=== PATIENT | male | born 1945 | race Caucasian/White ===

== ENCOUNTER → 2017-11-25 | Day surgery (SDC) | payer OTHER, MEDICARE ==
[2017-11-19 15:41] VITALS: Ht 171.5 cm; Wt 82.7 kg
[~2017-11-25] VITALS: Ht 171.5 cm; Wt 82.7 kg
[~2017-11-25] MED LIST: ASPI81TA28 PO; ATOR-24 PO; CALC0.2510 PO; CALC667C4 PO; CARV25TA2 PO; CHOL1TAB76 PO; CLON0.2T PO; ENDOSCOPIC MARKER 5 ML SYR ONE; FURO40TA3 PO; HMLIS SQ; INSDGI SQ; LIDOCAINE HCL 2% 2 ML VIAL (20MG/ML) ONE; LOSA50TA6 PO; NTRGSL/4 SL; ONDANSETRON INJ 2 MG/ML 2 ML VIAL IV PRN; PHENYLEPHRINE 100MCG/ML 5ML SYR ONE; PROPOFOL IV EMULSION 10 MG/ML 20 ML VIAL ONE; TRAM-10 PO
--- NOTE | 2017-11-25 09:30 | Endo History and Physical ---
History & Physical Date of Service: November 25, 2017. Chief Complaint: black tarry stools Referring Physician: Dr. Gentry santizo History of Present Illness Patient referred for history of dark tarry stool. This occurred about 1 month ago and is subsequently resolved. The patient and his do note that he has some abdominal distention which appears to be worsening. Past Surgical History Hx Cardiac Surgery: Yes (CARDIAC CATH-5 BLOCKAGES=QUINTUPLE BYPASS 2005, 3 STENTS) Hx Internal Defibrillator: No Hx Pacemaker: No Hx Abdominal Surgery: Yes (1972 APP) Hx of Implantable Prosthesis: No Hx Cancer Surgery: No Hx Thoracic Surgery: No Hx Orthopedic: No Hx Urinary Tract Surgery: No Family History Colon CA Social History Smoking Status: Former Smoker Hx Substance Use: No Hx Alcohol Use: No Allergies Coded Allergies: No Known Allergies (Unverified , 11/19/17) Current Medications Reported Home Medications Medications Dose Route/Sig Max Daily Dose Days Date Category Dose Instructions Cozaar (Losartan Potassium) 50 Mg Tab 1 Tab PO DAILY 30 11/19/17 Reported Nitrostat (Nitroglycerin) 0.4 Mg Tab 1 Tab SL UD 11/19/17 Reported Ultram (Tramadol HCl) 50 Mg Tab 1 Tab PO QID PRN 30 11/19/17 Reported Phoslo 667 Mg (Calcium Acetate) 667 Mg Cap 1 Cap PO DAILY 30 11/19/17 Reported Lasix (Furosemide) 40 Mg Tab 1 Tab PO DAILY 30 11/19/17 Reported D 2000 (Cholecalciferol) 2,000 Unit Tab 1 Tab PO DAILY 11/19/17 Reported Humalog Kwikpen (Insulin Human Lispro) 100 Units/Ml Inj SQ ACHS 06/14/16 Reported SLIDING SCALE Lantus (Insulin Glargine) 100 Unit/Ml Inj 28 Unit SQ HS 06/14/16 Reported Aspirin Ec (Aspirin) 81 Mg Tab 81 Mg PO DAILY 06/14/16 Reported Catapres (Clonidine Hcl) 0.2 Mg Tab 0.5 Tab PO TID 06/14/16 Reported Coreg (Carvedilol) 25 Mg Tab 25 Mg PO BID 06/14/16 Reported Rocaltrol Cap (Calcitriol) 0.25 Mcg Cap 0.25 Mcg PO DAILY 06/14/16 Reported Lipitor (Atorvastatin Calcium) 40 Mg Tab 40 Mg PO DAILY 06/14/16 Reported Vital Signs Weight (Kilograms): 82.73 Height (Feet): 5 Height (Inches): 7.5 Date Time Temp Pulse Resp B/P (MAP) Pulse Ox O2 Delivery O2 Flow Rate FiO2 11/25/17 09:14 36.8 72 20 119/53 (75) 97 Room Air Physical Exam General Appearance: no apparent distress Respiratory/Chest: Auscultation: deminished air movement Cardiovascular: Heart Auscultation: RRR Abdomen: Inspection & Palpation: soft, pertinent finding (Mild distention) Assessment and Plan Patient referred for upper endoscopy and colonoscopy to evaluate a history of anemia and dark sticky stool. The symptoms have subsequently resolved. I wonder if this may be related to peptic ulcer disease. We will proceed with an upper endoscopy and colonoscopy today. We have discussed the risks to include bleeding, infection, perforation, pain and missed colonic polyps. I would suggest that the patient follow with his regular provider due to the abdominal distention.
[2017-11-25 10:14] LABS: ISTAT IONIZED CALCIUM 1.17 mmol/l (1.12-1.32); ISTAT POTASSIUM 3.6 mEq/L (3.3-5.0)
--- NOTE | 2017-11-25 10:40 | Discharge Instructions ---
Endoscopy Patient Instructions Date / Procedure(s) Performed November 25, 2017. Colonoscopy, EGD Allergy Information Coded Allergies: No Known Allergies (Unverified , 11/19/17) Discharge Date / Findings November 25, 2017. Internal hemorrhoids Diverticulosis of the sigmoid colon One sigmoid colon polyp 1 large duodenal ulcer Mild gastritis Medication Instructions Stopped Medication(s): last ASA yesterday Reported Home Medications Medications Dose Route/Sig Max Daily Dose Days Date Category Dose Instructions Cozaar (Losartan Potassium) 50 Mg Tab 1 Tab PO DAILY 30 11/19/17 Reported Nitrostat (Nitroglycerin) 0.4 Mg Tab 1 Tab SL UD 11/19/17 Reported Ultram (Tramadol HCl) 50 Mg Tab 1 Tab PO QID PRN 30 11/19/17 Reported Phoslo 667 Mg (Calcium Acetate) 667 Mg Cap 1 Cap PO DAILY 30 11/19/17 Reported Lasix (Furosemide) 40 Mg Tab 1 Tab PO DAILY 30 11/19/17 Reported D 2000 (Cholecalciferol) 2,000 Unit Tab 1 Tab PO DAILY 11/19/17 Reported Humalog Kwikpen (Insulin Human Lispro) 100 Units/Ml Inj SQ ACHS 06/14/16 Reported SLIDING SCALE Lantus (Insulin Glargine) 100 Unit/Ml Inj 28 Unit SQ HS 06/14/16 Reported Aspirin Ec (Aspirin) 81 Mg Tab 81 Mg PO DAILY 06/14/16 Reported Catapres (Clonidine Hcl) 0.2 Mg Tab 0.5 Tab PO TID 06/14/16 Reported Coreg (Carvedilol) 25 Mg Tab 25 Mg PO BID 06/14/16 Reported Rocaltrol Cap (Calcitriol) 0.25 Mcg Cap 0.25 Mcg PO DAILY 06/14/16 Reported Lipitor (Atorvastatin Calcium) 40 Mg Tab 40 Mg PO DAILY 06/14/16 Reported Provider Instructions Activity Restrictions - No exercising or heavy lifting for 24 hours. - Do not drink alcohol the day of the procedure. - Do not drive a car or operate machinery until the day after the procedure. - Do not make any important decisions or sign important papers in 24 hours after the procedure. Following Day: - Return to full activity which may include returning to work/school. Diet Start your diet with liquids and light foods (jello, soup, juice, toast). Then eat your usual diet if not nauseated. Treatment For Common After Affects For mild abdominal pain, bloating, or excessive gas: - Rest - Eat lightly - Lie on right side Follow-Up Information Follow-up with Dr. Gentry santizo as scheduled Protonix 40 mg per day Carafate 1 gm twice daily for 6 week Repeat upper endoscopy in 3 months Anesthesia Information What You Should Know You have had a procedure that required some medicine to reduce anxiety and discomfort. This treatment is called moderate sedation. After receiving the treatment, you may be sleepy, but you will be able to breathe on your own. The effects of the treatment may last for several hours. Follow these instructions along with Activity/Diet recommendations noted above: * Do NOT do anything where dizziness or clumsiness would be dangerous. * Rest quietly at home today, then you can be up and about tomorrow. * Have a responsible person stay with you the rest of today. * You may have had an I.V. today. If so, you may take the dressing off later today. Recommendations Call your doctor if: * Trouble breathing * Continuous vomiting for more than 24 hours * Temperature above 101 degrees * Severe abdominal pain or bloating * Pain not relieved by pain medicine ordered * There is increased drainage or redness from any incision * A large amount of rectal bleeding greater than 2-3 tablespoons. (If you had a polyp/s removed or have hemorrhoids, a small amount of blood - from the rectum is to be expected.) * You have any unanswered questions or concerns. IN THE EVENT OF A SERIOUS EMERGENCY, GO TO THE NEAREST EMERGENCY ROOM Your discharge instructions were prepared by provider Vidal Avalos. Patient Instructions Signature Page Tres Hernández Patient (or Guardian) Signature/Date: I have read and understand the instructions given to me by my caregivers. Caregiver/RN/Doctor Signature/Date: The above-named patient and/or guardian has received patient instructions on this date. + Original Patient Signature Page (only) stays with chart. Please make copy for patient.
--- NOTE | 2017-11-25 10:44 | GI REPORT ---
Patient Name: Tres Hernández Procedure Date: 11/25/2017 9:37 AM Date of : 1945 Admit Type: Outpatient Age: 72 Gender: Male Attending MD: Vidal Avalos DO Procedure: Colonoscopy Providers: Vidal Avalos DO Referring MD: Gentry Marquis Piledis Indications: Screening for colorectal malignant neoplasm Medicines: Monitored Anesthesia Care Complications: No immediate complications. Estimated blood loss: Minimal. Estimated Blood Loss: Estimated blood loss was minimal. Procedure: Pre-Anesthesia Assessment: - Prior to the procedure, a History and Physical was performed, and patient medications, allergies and sensitivities were reviewed. The patient's tolerance of previous anesthesia was reviewed. - The risks and benefits of the procedure and the sedation options and risks were discussed with the patient. All questions were answered and informed consent was obtained. - Patient identification and proposed procedure were verified prior to the procedure by the physician, the nurse and the fibreglass laminator. The procedure was verified in the procedure room. - Pre-procedure physical examination revealed no contraindications to sedation. - ASA Grade Assessment: III - A patient with severe systemic disease. - After reviewing the risks and benefits, the patient was deemed in satisfactory condition to undergo the procedure. - The anesthesia plan was to use monitored anesthesia care (MAC). - Immediately prior to administration of medications, the patient was re-assessed for adequacy to receive sedatives. - The heart rate, respiratory rate, oxygen saturations, blood pressure, adequacy of pulmonary ventilation, and response to care were monitored throughout the procedure. - The physical status of the patient was re-assessed after the procedure. After I obtained informed consent, the scope was passed under direct vision. Throughout the procedure, the patient's blood pressure, pulse, and oxygen saturations were monitored continuously. The scope was introduced through the anus and advanced to the cecum, identified by appendiceal orifice and ileocecal valve. The colonoscopy was performed without difficulty. The patient tolerated the procedure well. The quality of the bowel preparation was good. Findings: The perianal and digital rectal examinations were normal. Pertinent negatives include normal sphincter tone. Multiple small-mouthed diverticula were found in the sigmoid colon and descending colon. A 18 mm polyp was found in the sigmoid colon. The polyp was sessile. The polyp was removed with a piecemeal technique using a hot snare. Resection and retrieval were complete. Area was tattooed with an injection of 1 mL of Spot (carbon black). Estimated blood loss was minimal. Internal hemorrhoids were found during retroflexion. The hemorrhoids were mild. The exam was otherwise without abnormality. Impression: - Mild diverticulosis in the sigmoid colon and in the descending colon. - One 18 mm polyp in the sigmoid colon, removed piecemeal using a hot snare. Resected and retrieved. Tattooed. - Internal hemorrhoids. - The examination was otherwise normal. Recommendation: - Discharge patient to home (ambulatory). - Advance diet as tolerated. - Repeat colonoscopy in 1 year for surveillance after piecemeal polypectomy. Vidal Avalos D.O. Vidal Avalos, 11/25/2017 10:44:09 AM This report has been signed electronically. Note Initiated On: 11/25/2017 9:37 AM Number of Addenda: 0 I attest to the content of the Intraoperative Record and orders documented therein, exceptions below {[id number]}
--- NOTE | 2017-11-25 10:47 | GI REPORT ---
Patient Name: Tres Hernández Procedure Date: 11/25/2017 9:37 AM Date of : 1945 Admit Type: Outpatient Age: 72 Gender: Male Attending MD: Vidal Avalos DO Procedure: Upper GI endoscopy Providers: Vidal Avalos DO Referring MD: Gentry Marquis Indications: Melena Medicines: Monitored Anesthesia Care Complications: No immediate complications. Estimated blood loss: Minimal. Estimated Blood Loss: Estimated blood loss was minimal. Procedure: Pre-Anesthesia Assessment: - Prior to the procedure, a History and Physical was performed, and patient medications, allergies and sensitivities were reviewed. The patient's tolerance of previous anesthesia was reviewed. - The risks and benefits of the procedure and the sedation options and risks were discussed with the patient. All questions were answered and informed consent was obtained. - Patient identification and proposed procedure were verified prior to the procedure by the physician, the nurse and the program director/morning show host. The procedure was verified in the procedure room. - Pre-procedure physical examination revealed no contraindications to sedation. - ASA Grade Assessment: IV - A patient with severe systemic disease that is a constant threat to life. - After reviewing the risks and benefits, the patient was deemed in satisfactory condition to undergo the procedure. - The anesthesia plan was to use monitored anesthesia care (MAC). - Immediately prior to administration of medications, the patient was re-assessed for adequacy to receive sedatives. - The heart rate, respiratory rate, oxygen saturations, blood pressure, adequacy of pulmonary ventilation, and response to care were monitored throughout the procedure. - The physical status of the patient was re-assessed after the procedure. After obtaining informed consent, the endoscope was passed under direct vision. Throughout the procedure, the patient's blood pressure, pulse, and oxygen saturations were monitored continuously. The scope was introduced through the mouth, and advanced to the third part of duodenum. The upper GI endoscopy was accomplished without difficulty. The patient tolerated the procedure well. Findings: The examined esophagus was normal. Diffuse mild inflammation characterized by erythema and granularity was found in the entire examined stomach. Biopsies were taken with a cold forceps for histology. Estimated blood loss was minimal. One partially obstructing non-bleeding cratered duodenal ulcer with no stigmata of bleeding was found in the duodenal bulb. The lesion was 20 mm in largest dimension. Biopsies were taken with a cold forceps for histology. Estimated blood loss was minimal. The second portion of the duodenum and third portion of the duodenum were normal. Impression: - Normal esophagus. - Gastritis. Biopsied. - One partially obstructing non-bleeding duodenal ulcer with no stigmata of bleeding. NSAID induced etiology. Biopsied. - Normal second portion of the duodenum and third portion of the duodenum. Recommendation: - Perform a colonoscopy today. - Await pathology results. - Use Protonix (pantoprazole) 40 mg PO daily. - Use sucralfate tablets 1 gram PO BID for 6 weeks. - No aspirin, ibuprofen, naproxen, or other non-steroidal anti-inflammatory drugs for 6 weeks. Vidal Avalos D.O. Vidal Avalos, 11/25/2017 10:47:27 AM This report has been signed electronically. Note Initiated On: 11/25/2017 9:37 AM Number of Addenda: 0 I attest to the content of the Intraoperative Record and orders documented therein, exceptions below {[id number]}
[2017-11-25 11:17] VITALS: BP 119/58; PULSE 70; O2SAT 99
--- NOTE | 2017-11-25 11:20 | Anesthesiology Progress Note ---
Anesthesia Post Op Note Date & Time November 25, 2017 at 11:20 Vital Signs Pain Intensity: 0 Vital Signs Past 12 Hours Date Time Temp Pulse Resp B/P (MAP) Pulse Ox O2 Delivery O2 Flow Rate FiO2 11/25/17 11:17 70 18 119/58 (78) 99 Room Air 11/25/17 11:02 68 16 110/60 (77) 99 Room Air 11/25/17 10:47 67 16 99/55 (70) 98 Room Air 11/25/17 09:14 36.8 72 20 119/53 (75) 97 Room Air Notes Mental Status: alert / awake / arousable, participated in evaluation Pt Amnestic to Procedure: Yes Nausea / Vomiting: adequately controlled Pain: adequately controlled Airway Patency, RR, SpO2: stable & adequate BP & HR: stable & adequate Hydration State: stable & adequate Anesthetic Complications: no major complications apparent
== END | disposition home or self-care (01) ==
LOC: C.GI 08:44
PROVIDERS: ATTEND Internal Medicine Gastroenterology
DX: K92.1 Melena (principal); K57.30 Diverticulosis of large intestine without perforation or abscess without bleeding; K29.80 Duodenitis without bleeding; K63.5 Polyp of colon; K64.8 Other hemorrhoids; K26.9 Duodenal ulcer, unspecified as acute or chronic, without hemorrhage or perforation; K29.70 Gastritis, unspecified, without bleeding; E11.22 Type 2 diabetes mellitus with diabetic chronic kidney disease; N18.4 Chronic kidney disease, stage 4 (severe); E78.5 Hyperlipidemia, unspecified; Z99.2 Dependence on renal dialysis; I12.9 Hypertensive chronic kidney disease with stage 1 through stage 4 chronic kidney disease, or unspecified chronic kidney disease; Z79.82 Long term (current) use of aspirin; Z79.899 Other long term (current) drug therapy; Z79.4 Long term (current) use of insulin; F17.220 Nicotine dependence, chewing tobacco, uncomplicated; Z80.0 Family history of malignant neoplasm of digestive organs

== ENCOUNTER 2019-01-02 05:25 | Inpatient (IN) ==
[2019-01-02] MEDS ORDERED: LOSARTAN POTASSIUM 50 MG TAB PO STA ×2 (06:00→06:48)
[2019-01-02 06:02] LABS: Basophils # (auto) 0.02 K/uL (0-0.2); Basophils % (auto) 0.2 %; Eosinophils # (auto) 0.08 K/uL (0-0.5); Eosinophils % (auto) 0.8 %; Hematocrit (blood only) 34.9 % (42-52); Hemoglobin 11.9 g/dL (14.0-18.0); Immature Granulocytes # (auto) 0.02 K/uL (0.00-0.02); Immature Granulocytes % (auto) 0.2 %; Lymphocytes # (auto) 0.61 K/uL (1.2-3.4); Lymphocytes % (auto) 6.3 %; Mean Corpuscular Hgb Conc 34.1 g/dL (32-36); Mean Corpuscular Volume 95.9 fL (80-100); Mean Platelet Volume 10.1 fL (7.4-10.4); Monocytes # (auto) 0.67 K/uL (0.11-0.59); Monocytes % (auto) 6.9 %; Neutrophils # (auto) 8.28 K/uL (1.4-6.5); Neutrophils % (auto) 85.6 %; Platelet Count 142 K/uL (130-400); RDW Coefficient of Variation 12.6 % (11.5-14.5); RDW Standard Deviation 44.1 fL (36.4-46.3); Red Blood Count 3.64 M/uL (4.7-6.1); White Blood Count 9.68 K/uL (4.8-10.8)
[2019-01-02 06:25] LABS: Prothrombin Time 10.6 Seconds (9.0-12.0)
[2019-01-02 06:34] LABS: Albumin Level 3.4 gm/dl (3.4-5.0); BUN Creatinine Ratio 4.3 (10-20); Bilirubin,Total 0.5 mg/dl (0.2-1); Calcium 9.6 mg/dl (8.5-10.1); Creatinine Clr Calc Pharmacy 9.4 ml/min; Est GFR (African American) 7.6; Est GFR (Non-African American) 6.5; Globulin 3.3 gm/dl (2.5-4.0); Magnesium 1.9 mg/dl (1.8-2.4); Phosphorus 4.6 mg/dl (2.5-4.9); Total Protein 6.7 gm/dl (6.4-8.2); Troponin I 0.095 ng/ml (0-0.045)
[2019-01-02] MEDS ORDERED: ALBUT/IPRATROP 3MG/0.5MG NEB 3 ML VIAL NEB STA (07:03)
[2019-01-02 07:08] LABS: Appearance Urine Clear (Clear); Bacteria Urine Automated Negative (Negative); Bilirubin Urine Negative (Negative); Blood Urine 3+ (Negative); Glucose Urine UA 2+ (Negative); Ketones Urine Negative (Negative); Leukocyte Esterase Urine Trace (Negative); Nitrite Urine Negative (Negative); RBC Urine Automated >30 /hpf (0-4); Specific Gravity Urine 1.011 (1.000-1.030); Urobilinogen Urine Negative (Negative)
[2019-01-02 07:16] LABS: Color Urine Dark Yellow; Protein Urine 2+ (Negative)
--- NOTE | 2019-01-02 07:21 | XRay Report ---
XR chest 1V portable CLINICAL HISTORY: 73 years-old Male presenting with sob. TECHNIQUE: Portable upright AP view of the chest was obtained. COMPARISON: 06/14/2016. FINDINGS: Median sternotomy wires and bypass graft rings noted. Vascular stent projects in the region of the le ft axilla. Atherosclerosis of the aortic arch. Cardiac silhouette top normal in size. Persistent elev ation of the left hemidiaphragm with few bandlike opacities at the left lung base. Diffusely prominen t lung markings most evident in the right lung. This may in part relate to interlobular septal thicke wm. No other focal opacity. No large effusion or pneumothorax. Degenerative changes of the thoracic spine. IMPRESSION: 1. Persistent left basilar atelectasis or scarring in the setting of left diaphragm elevation. 2. Diffusely coarsened lung markings may suggest congestive change or underlying chronic lung diseas e. No focal infiltrate to suggest edema or pneumonia. Electronically signed by: Devan Hidalgo M.D. 01/02/2019 7:19 AM
--- NOTE | 2019-01-02 08:11 | Emergency Department Note ---
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 this ECG as follows: Indication: SOB/dyspnea Rate (beats per minute): 99 Rhythm: sinus rhythm Findings: + other (normal intervals), + T-wave inversion (in aVL) and + left axis deviation; no PAC, no PVC, no ST depression, no ST elevation, no acute ischemic change and no ectopy Blood Pressure Blood Pressure Findings: Elevated blood pressure Blood Pressure Disposition: further management by hospitalist MDM Narrative Patient here well-appearing at rest, although describes worsening shortness of breath particularly with exertion over the last few days. Patient does have significant cardiac and renal history. He is due for dialysis today. Patient's initial labs revealed an elevated creatinine consistent with his chronic kidney disease as well as an elevated troponin which was originally thought to be secondary to his renal dysfunction. 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 Upon review of EMR, despite his chronic kidney disease patient has never had an elevated troponin level previously. Patient was recently treated for possible UTI as he presented to an outside ED with hematuria and was started on ciprofloxacin. Patient here had increased work of breathing and reported increased dyspnea with exertion, however oxygen saturations only dropped to 92%. Given unclear etiology, concern for his complex medical history, and continued reported symptoms, case was discussed with hospitalist for additional evaluation and management. Patient with a low risk Wells score, I have a low suspicion for PE given that symptoms are only with exertion and more likely be related to cardiac etiology instead of PE. Patient and family were made aware of all results and were in agree concerned about his progression of symptoms and unclear etiology. Impression & Plan Dyspnea, Elevated troponin, CKD (chronic kidney disease) Discharge Plan Visit Data *Final* Discharge Date/Time: 01/02/19 10:26 Chief Complaint: Shortness of Breath/Dyspnea Stated Complaint: chest tightness ED Provider: Abby Mabry Discharge Problem: Dyspnea, Elevated troponin, CKD (chronic kidney disease) Patient Disposition: Admitted As Inpatient Discharge Instructions Interventions: ED Discharge Assessment Last Done: 01/02/19 10:26 Discharge Problem: Dyspnea Qualifiers: Dyspnea type: dyspnea on exertion Qualified Code(s): R06.09 - Other forms of dyspnea CKD (chronic kidney disease) Qualifiers: Chronic kidney disease stage: on chronic dialysis Qualified Code(s): N18.6 - End stage renal disease The scribe's documentation has been prepared under my direction and personally reviewed by me in its entirety. I confirm that the note above accurately reflects all work, treatment, procedures, and medical decision making performed by me.
[2019-01-02] MEDS ORDERED: ASPIRIN 81 MG CHEW PO STA (09:33)
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
[2019-01-02] MEDS ORDERED: DEXTROSE 50% 50 ML SYRINGE IV PRN (10:58)
[2019-01-02] MEDS ORDERED: GLUCAGON FOR INJ 1 MG VIAL SQ PRN (10:58)
[2019-01-02] MEDS ORDERED: GLUCOSE 40% GEL 15 GM TUBE PO PRN (10:58)
[2019-01-02] MEDS ORDERED: CARBOHYDRATES FOR HYPOGLYCEMIA PO PRN (10:58)
[2019-01-02] MEDS ORDERED: ACETAMINOPHEN 325 MG TAB PO PRN (10:58)
[2019-01-02] MEDS ORDERED: GLUCOSE 10 TABS/TUBE PO PRN (10:58)
[2019-01-02] MEDS ORDERED: NITROGLYCERIN SL 0.4 MG/TAB TAB SL PRN (10:58)
[2019-01-02] MEDS: ATORVASTATIN 40 MG TAB PO SCH (12:32)
[2019-01-02] MEDS: PANTOprazole 40 MG TAB PO SCH (12:32)
[2019-01-02] MEDS: NEPHROCAPS PO SCH (12:34)
[2019-01-02] MEDS: CALCIUM ACETATE 667 MG CAP PO SCH ×3 (12:34→20:43)
[2019-01-02] MEDS: SEVELAMER HCL 800 MG TABLET PO SCH ×3 (12:34→20:43)
[2019-01-02] MEDS: INSULIN ASPART 100 UNITS/ML 3 ML PEN SC SCH ×3 (12:35→20:43)
[2019-01-02] MEDS: NITROGLYCERIN 2% OINTMENT 30GM TUBE EXT SCH ×3 (12:39→23:42)
[2019-01-02] MEDS ORDERED: HEPARIN SOD (PORCINE) 1000 UNIT/ML 10 ML VIAL IV ONE (12:43)
[2019-01-02] MEDS ORDERED: SODIUM CHLORIDE 0.9% 1000ML 1,000 ML IV PRN (12:43)
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
[2019-01-02 13:25] LABS: Hepatitis B Surface Antibody Immune
[2019-01-02] MEDS: CIPROFLOXACIN 500 MG TAB PO SCH (13:33)
[2019-01-02] MEDS: cloNIDine HCl 0.1 MG TAB PO SCH ×2 (13:33→20:42)
[2019-01-02 13:36] LABS: Hepatitis B Surface Antigen Neg (Neg)
--- NOTE | 2019-01-02 14:36 | Cardiology Progress Note ---
Date of Service January 02, 2019 Subjective Patient reassessed. He was in the inpatient dialysis unit receiving treatment. He was comfortable, and states he is asymptomatic from a chest pain standpoint. Blood pressure is improved. Echocardiogram revealed moderate concentric left ventricular hypertrophy, with normal left ventricular wall motion and normal LVEF. Moderate calcific aortic valve stenosis was present. The patient did not recall the past diagnosis of aortic stenosis, and so therefore I counseled him regarding the natural history of aortic stenosis. No operative intervention necessary at present since this is just moderate aortic stenosis, but will require echocardiographic surveillance in the future. Continue present therapy. Okay to advance diet from my perspective. Results & Data Vital Signs (Past 12 Hours) Vital Signs Temp Pulse Pulse Pulse Resp Resp BP 01/02/19 13:33 61 01/02/19 11:09 65 01/02/19 11:02 36.6 C 67 20 01/02/19 10:26 37.2 C 68 20 168/82 H 01/02/19 10:07 68 20 01/02/19 09:31 68 21 168/75 H 01/02/19 09:30 70 27 H 01/02/19 09:15 72 25 H 01/02/19 09:06 73 22 168/88 H 01/02/19 09:00 70 28 H 01/02/19 08:45 74 30 H 01/02/19 08:30 74 20 01/02/19 08:15 75 21 01/02/19 08:07 78 18 01/02/19 08:01 87 19 01/02/19 07:45 80 78 16 20 01/02/19 07:31 78 77 20 01/02/19 07:30 79 18 177/86 H 01/02/19 07:29 78 24 01/02/19 07:15 79 20 01/02/19 07:01 80 30 H 01/02/19 07:00 79 78 24 184/86 H 01/02/19 06:53 83 19 170/79 H 01/02/19 06:45 82 18 01/02/19 06:32 85 24 01/02/19 06:31 86 24 170/79 H 01/02/19 06:30 86 23 01/02/19 06:15 88 19 01/02/19 06:01 91 H 90 25 H 183/85 H 01/02/19 06:00 91 H 23 01/02/19 05:48 96 H 25 H 01/02/19 05:32 97 H 25 H 01/02/19 05:31 101 H 24 214/95 H 01/02/19 05:29 98 H 24 215/97 H 01/02/19 05:25 37.2 C 96 H 24 214/95 H BP Pulse Ox Pulse Ox 01/02/19 13:33 168/79 H 01/02/19 11:09 01/02/19 11:02 182/78 H 96 01/02/19 10:26 98 01/02/19 10:07 168/82 H 98 01/02/19 09:31 98 01/02/19 09:30 98 01/02/19 09:15 98 01/02/19 09:06 97 01/02/19 09:00 97 01/02/19 08:45 97 01/02/19 08:30 97 01/02/19 08:15 98 01/02/19 08:07 177/86 H 97 01/02/19 08:01 97 01/02/19 07:45 97 97 01/02/19 07:31 100 01/02/19 07:30 99 01/02/19 07:29 177/86 H 98 01/02/19 07:15 98 01/02/19 07:01 99 01/02/19 07:00 184/86 H 98 01/02/19 06:53 98 01/02/19 06:45 98 01/02/19 06:32 170/79 H 98 01/02/19 06:31 99 01/02/19 06:30 98 01/02/19 06:15 96 01/02/19 06:01 183/85 H 98 01/02/19 06:00 97 01/02/19 05:48 95 01/02/19 05:32 96 01/02/19 05:31 96 01/02/19 05:29 95 01/02/19 05:25 96
[2019-01-02] MEDS ORDERED: CIPROFLOXACIN 500 MG TAB PO SCH (17:00)
[2019-01-02] MEDS: HEPARIN SOD (PORCINE) 1000 UNIT/ML 10 ML VIAL IV SCH ×3 (18:30→18:59)
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
[2019-01-02] MEDS: INSULIN GLARGINE SOLOSTAR 100 UNITS/ML 3 ML PEN SC SCH (20:44)
[2019-01-02] MEDS ORDERED: LOSARTAN POTASSIUM 50 MG TAB PO SCH (21:00)
[2019-01-02] MEDS ORDERED: PROMETHAZINE HCL 12.5 MG in SODIUM CHLORIDE 0.9% 50 ML IV PRN (23:40)
[2019-01-03] MEDS: NITROGLYCERIN 2% OINTMENT 30GM TUBE EXT SCH (06:04)
[2019-01-03] MEDS: CIPROFLOXACIN 500 MG TAB PO SCH (06:05)
[2019-01-03 07:14] LABS: Hemoglobin 10.8 g/dL (14.0-18.0); Mean Corpuscular Hgb Conc 33.8 g/dL (32-36); Mean Platelet Volume 10.4 fL (7.4-10.4); Platelet Count 149 K/uL (130-400); RDW Coefficient of Variation 12.7 % (11.5-14.5); RDW Standard Deviation 45.2 fL (36.4-46.3); White Blood Count 5.86 K/uL (4.8-10.8)
[2019-01-03 08:14] LABS: BUN Creatinine Ratio 4.1 (10-20); Calcium 9.5 mg/dl (8.5-10.1); Creatinine Clr Calc Pharmacy 12.2 ml/min; Est GFR (African American) 10.7; Est GFR (Non-African American) 9.2; Potassium 3.9 mmol/L (3.5-5.1)
[2019-01-03] MEDS: CALCIUM ACETATE 667 MG CAP PO SCH ×3 (08:29→17:09)
[2019-01-03] MEDS: cloNIDine HCl 0.1 MG TAB PO SCH ×2 (08:29→13:19)
[2019-01-03] MEDS: NEPHROCAPS PO SCH (08:29)
[2019-01-03] MEDS: ATORVASTATIN 40 MG TAB PO SCH (08:29)
[2019-01-03] MEDS: SEVELAMER HCL 800 MG TABLET PO SCH ×3 (08:29→17:09)
[2019-01-03] MEDS: INSULIN GLARGINE SOLOSTAR 100 UNITS/ML 3 ML PEN SC SCH (08:30)
[2019-01-03] MEDS: INSULIN ASPART 100 UNITS/ML 3 ML PEN SC SCH ×3 (08:30→17:09)
[2019-01-03] MEDS: PANTOprazole 40 MG TAB PO SCH (08:30)
[2019-01-03] MEDS ORDERED: CHOLECALCIFEROL 1,000 UNITS TAB PO SCH (09:00)
[2019-01-03] MEDS ORDERED: ASPIRIN 81 MG ECTAB PO SCH (09:00)
[2019-01-03] MEDS ORDERED: CARVEDILOL 12.5 MG TAB PO SCH (11:30)
--- NOTE | 2019-01-03 11:38 | Cardiology Progress Note ---
Date of Service January 03, 2019 Assessment & Plan (1) Chest tightness: 73-year-old male with a past medical history of coronary heart disease with remote CABG x5 performed in [place] in 2005. Patient with transient chest tightness. He has been observed to have significant hypertension. Echocardiogram findings revealed normal left ventricular wall motion without regional wall motion abnormalities, normal LVEF, moderate concentric left ventricular hypertrophy and moderate aortic valve stenosis. EKG with mild nonspecific changes, and troponin minimally elevated in the setting of end-stage renal disease and dialysis. Per review of patient's outpatient [facility] chart, he is supposed to be on carvedilol 12.5 mg twice daily. He has a long-standing history of treatment with this medication, and he had most recently been prescribed and June 2018. The patient does not recall this medication having been discontinued by his senior bi developer or shirt bander. Perhaps this medication could have been discontinued due to bradycardia as he is also on clonidine, but his heart rates are well controlled without tachycardia or bradycardia on telemetry here with resting heart rates in the range of 60 to 70 bpm. The patient does not recall when this medication may have been changed. He does not know if he is taking it as an outpatient. I am going to resume the carvedilol at its prior dose 12.5 mg twice daily. Topical nitrates will be discontinued. Future consideration includes adding isosorbide mononitrate or even low-dose amlodipine for empiric therapy of suspected microvascular dysfunction in the setting of known CAD and severe LVH. Of course need to be cautious to not lower his blood pressure too much because of the aortic stenosis. Outpatient follow-up of the aortic stenosis will need to be pursued with his primary senior bi developer with repeat echo at a 6 to 12-month interval. I think it is reassuring that the patient had a recent nonischemic response to nuclear stress testing. He is tentatively been scheduled for an outpatient colonoscopy. If EGD or colonoscopy is felt to be indicated, would wait until we optimize his blood pressure. (2) Hypertension: (3) Aortic stenosis: (4) ESRD (end stage renal disease) on dialysis: Subjective Chief complaint: Follow-up chest discomfort Subjective: Patient resting comfortably in bed. He underwent an uneventful dialysis session yesterday. He remains hypertensive with most recent blood pressure 178/83. Telemetry reveals stable sinus rhythm in the range of 60 to 70 bpm. Patient noted nauseousness overnight last night for which he received antiemetic medication, but no symptoms of chest discomfort. Review of Systems Review of Systems: All systems reviewed & are unremarkable except as noted in HPI & below Physical Exam Constitutional: no acute distress Respiratory: normal respiratory effort, lungs clear to auscultation Cardiovascular: Rate/Rhythm: regular rate and regular rhythm Heart Sounds: + murmur (I/ systolic murmur) Vessels: no JVD Extremities: no edema Gastrointestinal (Abdomen): normal bowel sounds, soft, nontender, no hepatosplenomegaly Skin: no rashes, warm and dry Neurologic: normal touch/pain/proprioception and moves all extremities; no focal motor deficits Results & Data Vital Signs (Past 12 Hours) Vital Signs Temp Pulse Pulse Resp BP Pulse Ox 01/03/19 11:17 36.7 C 69 18 178/83 H 97 01/03/19 09:33 62 01/03/19 07:11 36.8 C 68 18 169/84 H 96 01/03/19 04:46 36.8 C 68 18 150/84 H 95 01/03/19 01:00 69 01/02/19 23:35 71 161/71 H Laboratory Results Cardiac Enzymes 01/02/19 01/02/19 Range/Units 12:31 19:28 Troponin I 0.278 H* 0.232 H* (0-0.045) ng/ml Lipids 01/03/19 Range/Units 06:59 Triglycerides 74 (0-150) mg/dl Cholesterol 90 (0-200) mg/dl HDL Cholesterol 55 mg/dl Cholesterol/HDL Ratio 2 CBC 01/03/19 Range/Units 06:59 WBC 5.86 (4.8-10.8) K/uL RBC 3.30 L (4.7-6.1) M/uL Hgb 10.8 L (14.0-18.0) g/dL Hct 32.0 L (42-52) % Plt Count 149 (130-400) K/uL Comprehensive Metabolic Panel 01/03/19 Range/Units 06:59 Sodium 139 (136-145) mmol/L Potassium 3.9 (3.5-5.1) mmol/L Chloride 99 (98-107) mmol/L Carbon Dioxide 31 (21-32) mmol/L BUN 23 H (7-18) mg/dl Creatinine 5.69 H* D (0.6-1.4) mg/dl Glucose 100 H (70-99) mg/dl Calcium 9.5 (8.5-10.1) mg/dl Intake and Output 01/02/19 01/03/19 01/03/19 22:59 06:59 14:59 Intake Total 300 / 750.5 250.5 / 750.5 Output Total 200 / 200 Balance 100 / 550.5 250.5 / 550.5 Intake: IV 50.5 / 50.5 Phenergan 12.5 mg In Nss 50 ml 50.5 / 50.5 @ 202 mls/hr IV Q6H PRN Rx#: [id number] Oral 300 / 700 200 / 700 Output: Urine 200 / 200 Other: Hemodialysis Ultrafiltration 3,500 Amount # Unmeasured Voids 2 Weight 83.4 kg 81.7 kg Diagnostic Findings EKG performed today 01/03/2019 reveals normal sinus rhythm at 66 bpm, left ventricular hypertrophy by voltage criteria, nonspecific T wave abnormality noted in the inferior and lateral leads. Medications Administered Current Inpatient Medications Acetaminophen (Tylenol) 650 mg PO Q4H PRN PRN Reason: Pain or Fever Stop: 02/01/19 10:57 Aspirin (Ecotrin Ectab) 81 mg PO QAM [facility] Stop: 02/02/19 08:59 Last Admin: 01/03/19 08:29 Dose: 81 mg Documented by: Atorvastatin Calcium (Lipitor) 40 mg PO QAM [facility] Stop: 02/01/19 10:57 Last Admin: 01/03/19 08:29 Dose: 40 mg Documented by: Calcium Acetate (Phoslo) 667 mg PO QIDM [facility] Stop: 02/01/19 11:59 Last Admin: 01/03/19 08:29 Dose: 667 mg Documented by: Carvedilol (Coreg) 12.5 mg PO BID [facility] Stop: 02/02/19 11:29 Ciprofloxacin (Cipro) 500 mg PO Q18H [facility]; Protocol Stop: 01/07/19 12:14 Last Admin: 01/03/19 06:05 Dose: 500 mg Documented by: Clonidine HCl (Catapres) 0.1 mg PO TID [facility] Stop: 02/01/19 13:59 Last Admin: 01/03/19 08:29 Dose: 0.1 mg Documented by: Dextrose (Dextrose 50%) 25 - 50 ml IV UD PRN; Protocol PRN Reason: Hypoglycemia Protocol Stop: 02/01/19 10:57 Glucagon (Glucagen) 1 mg SQ UD PRN; Protocol PRN Reason: Hypoglycemia Protocol Stop: 02/01/19 10:57 Glucose (Glucose 40%) 15 - 30 gm PO UD PRN; Protocol PRN Reason: Hypoglycemia Protocol Stop: 02/01/19 10:57 Glucose (Dex4 Glucose) 4 - 8 tabs PO UD PRN; Protocol PRN Reason: Hypoglycemia Protocol Stop: 02/01/19 10:57 Promethazine HCl 12.5 mg/ (Sodium Chloride) 50.5 mls @ 202 mls/hr IV Q6H PRN PRN Reason: Nausea And Vomiting Stop: 02/01/19 23:39 Last Infusion: 01/03/19 00:26 Dose: Infused Documented by: Insulin Aspart (Novolog Flexpen) 0 units SC ACHS [facility] Stop: 02/01/19 11:29 Last Admin: 01/03/19 08:30 Dose: 2 units Documented by: Insulin Glargine (Lantus Solostar Pen) 0 units SC BID [facility]; Protocol Stop: 02/01/19 20:59 Last Admin: 01/03/19 08:30 Dose: Not Given Documented by: Losartan Potassium (Cozaar) 100 mg PO HS [facility] Stop: 02/01/19 20:59 Last Admin: 01/02/19 20:44 Dose: 100 mg Documented by: Miscellaneous (Order Awaiting Action) 1 ea N/A QS [facility] Stop: 02/01/19 15:59 Last Admin: 01/03/19 07:35 Dose: Not Given Documented by: Miscellaneous (Carbohydrates For Hypoglycemia) 15 - 30 gm PO UD PRN PRN Reason: Hypoglycemia Treatment Stop: 02/01/19 10:57 Nitroglycerin (Nitrostat) 0.4 mg SL UD PRN PRN Reason: Chest Pain Stop: 02/01/19 10:57 Pantoprazole Sodium (Protonix) 40 mg PO DAILY [facility]; Protocol Stop: 02/01/19 11:14 Last Admin: 01/03/19 08:30 Dose: 40 mg Documented by: Sevelamer HCl (Renagel) 800 mg PO QIDM [facility] Stop: 02/01/19 11:59 Last Admin: 01/03/19 08:29 Dose: 800 mg Documented by: Vitamin B Complex/Folic Acid (Nephrocaps) 1 cap PO DAILY [facility]; Protocol Stop: 02/01/19 11:59 Last Admin: 01/03/19 08:29 Dose: 1 cap Documented by: Vitamin D (Vitamin D3) 2,000 units PO DAILY [facility] Stop: 02/02/19 08:59 Last Admin: 01/03/19 08:30 Dose: 2,000 units Documented by: (1) Hypertension Hypertension type: essential hypertension Qualified Code(s): I10 - Essential (primary) hypertension
[2019-01-03] MEDS ORDERED: CIPROFLOXACIN 500 MG TAB PO SCH (16:00)
--- NOTE | 2019-01-03 17:07 | Discharge Summary ---
Date of Service January 03, 2019 Admission HPI Per Admitting Provider Pt is 73 y/o M with PMH HTN, HLD, CAD S/P CABG x5 in 2006, ESRD on HD on MWF, DM II, chronic back pain presented to ER with complaint of shortness of breath. Patient is poor historian and difficult to give detailed description of his symptoms. attempted to assist in history. Patient reports that he has been having intermittent shortness of breath with associated chest tightness since his CABG in 2005. Patient vague on when symptoms occur but seems like become shortness of breath with exertion and can also occur at rest. reports that she has noticed that patient also become short of breath at night and has heavy breathing. Patient states symptoms have been consistent however this morning he woke up with increased shortness of breath with associated chest tightness and EMS was called. He reports when he has arrived they placed him on oxygen and his shortness of breath and chest tightness resolved and has not reoccurred since being in ER. Denies any diaphoresis, neck pain, arm pain, nausea, vomiting. Patient has nitroglycerin to use at home however states has never used it. History of nuclear stress test on 11/29/2018 which was negative for inducible ischemia. Reports past 3 months with clear rhinorrhea, postnasal drip and cough in the mornings. Sometimes cough is productive of clear phlegm. Denies history of sleep apnea. Patient states several days ago noticed gross hematuria. He reports he has been having dysuria for 2-3 months. He reports being seen at [facility] ER on 12/31/2018 and was diagnosed with UTI and was placed on Cipro 500 mg daily for 7 days. Patient states since starting Cipro has not had any further dysuria and gross hematuria has resolved. Patient reports his been having abdominal pain for the past couple of months. States initially was nauseated and had abdominal pain after dialysis which would last 3 to 4 hours however symptoms became more frequent and followed up with GI. Patient reports is scheduled for colonoscopy tomorrow on 01/03/2019. Patient is due for dialysis today. Patient reports chronic low back pain has followed up with spine or the one past and no surgery was indicated. Patient is on medical marijuana since 09/2018 for chronic back pain. He reports he has chronic bilateral leg weakness which has increased over the past year and he was using a cane for approximately 9 months however the past month has needed to be using a walker. Patient denies any lower extremity paresthesias, denies any falls. Denies fever/chills, ALMAGUER, dizziness, syncope, vision changes, neck pain, palpitations, hemoptysis, sore throat, choking, otalgia, extremity edema, rashes. 11/29/2018: Nuclear stress test: No induced ischemia, resting EF 47%. 2016: Echo: EF: 50%, no major focal wall motion abnormalities, enlargement of left atrium, left ventricular hypertrophy, very dense sclerotic changes involving both the aortic and mitral valve leaflets as well as mitral annular calcification. Admission Exam Per Admitting Provider General: chronic ill appearing, no acute distress, WDWN Head: normocephalic, atraumatic Eyes: PERRL, EOM's intact, conjunctiva non-injected, anicteric ENT: normal inspection external ears, nose, mucous membranes moist Neck: supple, trachea midline Lungs: Pt on 2L NC with O2 sat 98%, clear, no respiratory distress, no wheezing/rhonchi/rales CV: RRR, systolic murmur, no pretibial edema Abd: normal BS, soft, non-tender, no CVA tenderness to palpation Ext: LUE: AV fistula with thrill, no cyanosis, no calf tenderness, distal pulses palpable Neuro: A&O x 3, no focal deficits noted, flat affect Skin: warm, dry Principal Diagnosis Chest tightness-resolved ESRD on HD Aortic stenosis Hypertensive Urgency Discharge Data Allergies Allergy/AdvReac Type Severity Reaction Status Date / Time NSAIDS (Non-Steroidal Allergy Severe intolerance--has Verified 12/26/18 08:22 Anti-Inflamma had 2 gastric ulcers Consultations 01/02/19 08:08 ED Decision to Admit Stat 01/02/19 10:58 Consult Cardiology Routine Consult Case Management - Discharge Planning Routine Consult Gastroenterology Routine Consult Nephrology Routine Hospital Course (1) Hypertensive urgency: (2) CAD (coronary artery disease): (3) SOB (shortness of breath): (4) Chest tightness: (5) Elevated troponin: (6) ESRD (end stage renal disease) on dialysis: (7) Recent urinary tract infection: (8) Diabetes mellitus, type 2: (9) Hypertension: (10) Chronic back pain: 73-year-old man with known ischemic heart disease and ESRD on hemodialysis presented to the ER after a episode of shortness of breath with subsequent chest tightness woke him from sleep earlier that morning. He reported that when EMS arrived and oxygen was placed his symptoms resolved. They did not return the remainder of his hospitalization. He does use medical marijuana at baseline. In the ER blood pressure was noted to be 214/95 with a pulse of 96. He was afebrile and oxygenating well on room air. Blood pressure improved with administration of home blood pressure medications. Troponin was checked mildly elevated at 0.095 chest x-ray was negative. EKG revealed sinus rhythm with 99 bpm, T wave inversion in aVL and left axis deviation. No PACs, PACs or ST depression or elevation was seen. Lab work revealed a normal CBC and normal electrolytes with a BUN 32 and creatinine 7.56. Glucose was 247. Patient was due for dialysis on day of admission and nephrology was consulted to help perform this. Cardiology was consulted and aside from adding topical nitrates for further blood pressure control no further work-up for ischemic heart disease was undertaken. A resting echocardiogram had been performed prior to this and revealed an EF of 55 to 60% with moderate concentric left ventricular hypertrophy, normal left ventricular wall motion, moderate valvular aortic stenosis. Prior to discharge he was put on carvedilol which had been previously stopped for unknown reason. As heart rate was around 60 at time of discharge this was reduced from his prior dose of 12.5 mg twice daily to 6.25 mg twice daily. Subsequent blood pressure measurements were in the normal range. Close primary care follow-up was recommended. At time of discharge he was mentating emulating baseline and was tolerating p.o. He was hemodynamically stable and afebrile and physical exam was unremarkable. It is also noted that the patient had a recent nonischemic response to nuclear stress testing 1 month ago which is reassuring. Also of note is that the patient was set to undergo an endoscopy and colonoscopy at time of admission. Gastroenterology was consulted and saw the patient in the hospital. Endoscopic work-up was deferred until after discharge. Total Time Total Time Spent Total Time Spent (In Minutes): 60 Total Time Includes: Examination of the Patient, Discharge Planning, Medication Reconciliation and Communication With Other Providers Discharge Plan Discharge Items Patient Disposition: Home - Self-Care Reason For Visit: SOB Discharge Diagnosis: Chest tightness-resolved ESRD on HD Aortic stenosis Hypertension Condition: Good Discharge Goals: Improve disease control Activity: Resume your previous activity Non-emergency contact: Primary Care Provider Call non-emergency contact if: you have any medication questions, your symptoms worsen, your pain is not controlled and you have a fever Follow-up/Referrals: Gentry Ordonez MD [Primary Care Provider] - Diet: Carb Consistent or DM2 and Heart Healthy Addtl Provider Instructions: Please take all medications as instructed on discharge list below. It is recommended that you follow-up with your primary care physician within one week of hospital discharge. It was a pleasure taking care of you! Please call if you have any questions or problems. You can reach a [facility] hospitalist on duty at [facility] 24 hours a day by calling [phone]. Take care of yourself. Cornelia Shaikh, DO [facility] Hospitalist Prescriptions: New carvedilol [Coreg] 6.25 mg tablet 6.25 mg PO BID Qty: 60 RF: 1 Continued losartan 50 mg Tablet 100 mg PO HS RF: 0 atorvastatin [Lipitor] 40 mg Tablet 40 mg PO QAM RF: 0 Lantus U-100 Insulin 100 unit/mL Solution 28 unit SUBCUT HS RF: 0 calcium acetate 667 mg Tablet 667 mg PO QID RF: 0 aspirin [Aspir-Low] 81 mg Tablet,Delayed Release (Dr/Ec) 81 mg PO QAM RF: 0 clonidine HCl [Catapres] 0.2 mg Tablet 0.5 tab PO TID RF: 0 nitroglycerin [Nitrostat] 0.4 mg Tablet, Sublingual 1 tab Sublingual UD PRN (Reason: CHEST PAIN) RF: 0 insulin lispro [Humalog KwikPen Insulin] 100 unit/mL Insulin Pen 1 dose SUBCUT UD RF: 0 sevelamer carbonate 800 mg Tablet 800 mg PO QID RF: 0 omeprazole 20 mg Tablet,Delayed Release (Dr/Ec) 20 mg PO QAM RF: 0 Renal Caps 1 mg capsule 1 mg PO QID RF: 0 cinacalcet 30 mg tablet 30 mg PO 3XWK RF: 0 Medical Cannabis 1 dose PO UD PRN (Reason: Pain) RF: 0 ciprofloxacin HCl 500 mg tablet 500 mg PO DAILY RF: 0 cholecalciferol (vitamin D3) [Vitamin D3] 2,000 unit Capsule 2,000 unit PO DAILY RF: 0 Stand-Alone Forms: My [facility] Discharge Orders: Discharge Order (Routine); Ordered 01/03/19 Ordered By: Cornelia Shaikh Admission Data Admit Date/Time: 01/02/19 09:32 Attending Provider: Cornelia Shaikh Admit Provider: Cornelia Shaikh Primary Care Provider: Gentry Ordonez Other Providers: Marge Quinonez ; Lazaro Randle ; Mary Kay Bernabe ; Ginna Barajsa Service: Telemetry Medical Other Interventions: Discharge Summary Assessment (RN) Last Done: 01/03/19 17:54 DC Date/Time DO NOT enter until pt leaves facility: 01/03/19 19:06
[2019-01-04] MEDS ORDERED: CINACALCET 30 MG PO SCH (09:00)
== END 2019-01-03 19:06 | disposition home or self-care (01) | DRG 304 ==
LOC: ED 05:25 → 2W 09:32